=== PATIENT | female | born 1955 | race Caucasian/White ===

== ENCOUNTER → 2023-10-31 07:07 | Outpatient (REF) | payer MEDICARE, OTHER, SELFPAY ==
[2023-10-31 11:55] LABS: HDL Cholesterol 106 mg/dl; LDL Cholesterol, Calculated 89 mg/dl; Total Cholesterol 208 mg/dl (50-199); Triglyceride 67 mg/dl (10-149); Very Low Density Lipoprotein 13 mg/dl (0-30)
== END ==
LOC: HWRCS 07:07
PROVIDERS: ATTENDING PHYSICIAN Internal Medicine; FAMILY PHYSICIAN Internal Medicine
DX: I10 Essential (primary) hypertension (principal)
CPT/HCPCS: 36415; 80061; 93306

== ENCOUNTER → 2024-03-28 10:28 | Outpatient (REF) | payer MEDICARE, OTHER, SELFPAY ==
[2024-03-28 13:07] LABS: Blood Urea Nitrogen 38 mg/dl (7-17); Carbon Dioxide 25 mmol/L (22-30); Chloride 109 mmol/L (98-107); Glucose 100 mg/dl (70-99); Potassium 4.1 mmol/L (3.5-5.1); Sodium 143 mmol/L (135-145); eGFR 49.61
== END ==
LOC: HWLAB 10:28
PROVIDERS: ATTENDING PHYSICIAN Internal Medicine; FAMILY PHYSICIAN Internal Medicine
DX: I10 Essential (primary) hypertension (principal)
CPT/HCPCS: 36415; 80048

== ENCOUNTER → 2024-04-11 11:47 | Outpatient (REF) | payer MEDICARE, OTHER, SELFPAY ==
[2024-04-11 15:48] LABS: Blood Urea Nitrogen 26 mg/dl (7-17); Calcium 9.1 mg/dl (8.4-10.2); Carbon Dioxide 27 mmol/L (22-30); Chloride 106 mmol/L (98-107); Glucose 82 mg/dl (70-99); Potassium 4.3 mmol/L (3.5-5.1); Sodium 142 mmol/L (135-145); eGFR 55.07
== END ==
LOC: HWLAB 11:47
PROVIDERS: ATTENDING PHYSICIAN Internal Medicine; FAMILY PHYSICIAN Internal Medicine
DX: I10 Essential (primary) hypertension (principal)
CPT/HCPCS: 36415; 80048

== ENCOUNTER → 2024-07-11 09:18 | Outpatient (REF) | payer MEDICARE, OTHER, SELFPAY ==
[2024-07-11 11:57] LABS: Blood Urea Nitrogen 30 mg/dl (7-17); Calcium 8.4 mg/dl (8.4-10.2); Carbon Dioxide 26 mmol/L (22-30); Chloride 106 mmol/L (98-107); Glucose 87 mg/dl (70-99); Potassium 4.2 mmol/L (3.5-5.1); Sodium 140 mmol/L (135-145); eGFR > 60.00
== END ==
LOC: HWLAB 09:18
PROVIDERS: ATTENDING PHYSICIAN Internal Medicine; FAMILY PHYSICIAN Internal Medicine
DX: I10 Essential (primary) hypertension (principal)
CPT/HCPCS: 36415; 80048

== ENCOUNTER 2025-03-28 07:59 | Emergency (ER) | payer MEDICARE, OTHER, SELFPAY ==
[2025-03-28 08:01] VITALS: BP 195/118
--- NOTE | 2025-03-28 08:40 | ED.GENMED ---
History of Present Illness
General
Chief Complaint: Abdominal Pain
Time Seen by Provider: 03/28/25 08:25
History of Present Illness
History of Present Illness:
69-year-old female with history of hypertension presents to the emergency department for evaluation of constipation for the past 1 to 2 weeks. Small caliber loose stools as well as liquid stools throughout the past., She denies any rectal pain or
pressure but does report generalized abdominal bloating. She is not on any opiates or other constipating medications. Denies any fevers or chills. No significant abdominal pain at this time.
Review of Systems
Review of Systems
Allergies reviewed?: Yes
All Other Systems: ROS reviewed and negative except as documented in HPI and ROS
Phy Exam
Physical Exam
Physical Exam:
GEN: Well appearing, NAD, WDWN
HEENT: Oral mucosa moist, no scleral icterus
Cardiac: Regular rate
Lung: No respiratory distress, no tachypnea
Abdomen: Soft, generalized tenderness to all 4 quadrants, no focal pain
Rectal: Exam performed with ALEJA Maloney at bedside, no stool in the rectal vault
MSK: No gross deformity or injuries
Skin: Good color, no pallor or jaundice, no rashes
Neuro: AO x3, moves all extremities freely
Psych: Calm, cooperative
Course
Orders/Labs/Results
Orders:
Orders
03/28/25 08:39
Magnesium Citrate [Citroma] 300 ml PO ONCE ONE
Vital Signs
Initial and Last Documented VS:
Initial Vital Signs
Temp Pulse Resp BP Pulse Ox
98.2 F 82 16 195/118 100
03/28/25 08:01 03/28/25 08:01 03/28/25 08:01 03/28/25 08:01 03/28/25 08:01
Last Documented Vital Signs
Temp Pulse Resp BP Pulse Ox
98.2 F 82 16 195/118 100
03/28/25 08:01 03/28/25 08:01 03/28/25 08:01 03/28/25 08:01 03/28/25 08:41
MDM/Problems Addressed
MDM/Problems Addressed:
Will give laxative given lack of evidence for fecal impaction in the rectum, she has a benign abdominal exam I see no indication for labs or imaging at this time
*Pulse Oximetry
SaO2: 100
Oxygen Mode of Delivery: Room air
Patient hypoxic: no
*Critical Care Note
Total Time (30-74mins, 75-104mins- exclusive of procedures): Not Applicable
ED Attending Note
-
Portions of this chart may have been created with voice recognition software.� Occasional wrong word or��sound alike� substitutions may have occurred due to the inherent limitations of voice recognition software.
Discharge Plan
Departure
Patient Disposition: Home (Routine Discharge)
Date of Disposition: 03/28/25
Time of Disposition: 08:40
Patient with high blood pressure during this ER visit?: No
Discharge Problem:
Constipation
Instructions: Constipation, Adult (DC)
Prescriptions:
No Action
omeprazole 40 mg Capsule,Delayed Release(Dr/Ec)
40 mg PO DAILY
valsartan 320 mg Tablet
320 mg PO DAILY
metoprolol succinate 25 mg Tablet Extended Release 24 Hr
25 mg PO DAILY
Multivitamin 50 Plus Tablet
1 tab PO DAILY
Vitamin D3 Complete 18 mg iron-800 mcg-150 mg Tablet
1 tab PO DAILY
Interventions
Interventions:
*Risk Screen - Suicide Last Done: 03/28/25 08:01
*General Assessment Last Done: 03/28/25 08:51
*Neglect/Abuse Screening Last Done: 03/28/25 08:01
*ED- Fall Risk Assessment Last Done: 03/28/25 08:52
*ED COVID-19 Vaccine History Last Done: 03/28/25 08:52
*ED Influenza Vaccine History Last Done: 03/28/25 08:52
*Nursing Disposition Last Done: 03/28/25 08:52
YK-Qpnoia-Bcyrudxnbf Assessment Last Done: 03/28/25 08:52
Discharge Date and Time
Discharge Date/Time: 03/28/25 08:53
Print Language: [id number]
[2025-03-28] MEDS: CITROMA 300 ML PO (08:46)
== END 2025-03-28 08:53 | disposition home or self-care (01) ==
LOC: EMR 07:59
PROVIDERS: EMERGENCY PHYSICIAN Emergency Medicine
DX: K59.00 Constipation, unspecified (principal); I10 Essential (primary) hypertension
CPT/HCPCS: 99283